=== PATIENT | male | born 1995 | race Caucasian/White ===

== ENCOUNTER 2018-09-10 18:32 | Inpatient (IN) | payer OTHER, SELFPAY ==
[~2018-09-10 18:32] MED LIST: ISOVUE-370 76%-LOCM 1 ML ONE
[2018-09-10] MEDS ORDERED: Propofol 1,000 MG/100 ML VIAL IV ONE (18:38)
[2018-09-10] MEDS ORDERED: CEFAZOLIN 1 GM VIAL ONE (18:41)
[2018-09-10] MEDS ORDERED: Adacel (T-DAP) 0.5 ML SYRINGE ONE (18:41)
[2018-09-10] MEDS ORDERED: Fentanyl 100 MCG/2 ML VIAL ONE (18:45)
[2018-09-10 18:50] LABS: Hemoglobin 14.3 g/dL (14.0-18.0); Mean Corpuscular HGB CONC 32.4 g/dL (32.0-36.0); Mean Corpuscular Hemoglobin 30.2 pg (27.0-31.0); Mean Corpuscular Volume 93.2 fL (78.0-98.0); Mean Platelet Volume 9.1 fL (7.4-10.4); Platelet Count 208 thou/uL (130-400); RBC Distribution Width 12.4 % (11.5-14.5); Red Blood Cell (RBC) Count 4.75 mill/uL (4.70-6.10); White Blood Cell (WBC) Count 29.8 thou/uL (4.8-10.8)
[2018-09-10 18:57] LABS: INR-International Normal Ratio 1.1; PTT 24.5 SEC (22.9-36.1); Prothrombin Time 14.4 SEC (12.0-14.7)
[2018-09-10 19:02] LABS: ALT (SGPT) 38 U/L (8-55); AST (SGOT) 45 U/L (5-34); Albumin 3.8 g/dL (3.5-5.0); Alkaline Phosphatase 75 U/L (40-150); Anion Gap 14 mmol/L (10-20); BUN (Urea Nitrogen) 16 mg/dL (8.9-20.6); Bilirubin, Total 0.4 mg/dL (0.2-1.2); Calc. Creatinine Clearance 0 mL/min (70-130); Calcium 8.9 mg/dL (7.8-10.44); Carbon Dioxide 25 mmol/L (22-29); Chloride 106 mmol/L (98-107); Estimated GFR-MDRD 46; Glucose 245 mg/dL (70-105); Potassium 3.7 mmol/L (3.5-5.1); Protein, Total 6.8 g/dL (6.0-8.3); Sodium 141 mmol/L (136-145)
[2018-09-10] MEDS ORDERED: Succinylcholine Chloride 20 MG/ML 10 ml SYRINGE FS ONE (19:08)
[2018-09-10 19:09] LABS: Band 12 % (5-11); Lymphocytes 37 % (21-51); MDiff Complete? YES; Monocytes 3 % (0-10); Neutrophil 48 % (42-75); Platelet Morphology Comment Appears Adequate
[2018-09-10 19:32] LABS: Actual Bicarbonate (HCO3a) 21.4 mEq/L (22-28); Analyzer IN Cardio ER; Base Excess (BEa) -5.3 mEq/L (-2.0 to +3.0); CO2 Tension 46.2 mmHg (35.0-45.0); Calcium, Ionized 1.14 mmol/L (1.12-1.30); Carboxyhemoglobin (COHb) 0.9 gm% (0.0-3.0); Hemoglobin (Hb) 13.4 g/dL (14.0-18.0); O2 Tension (PaO2) 135.2 mmHg (80.0-100.0); Potassium - ABG Lab 3.63 mmol/L (3.70-5.30); pH, Arterial 7.28 (7.35-7.45)
[2018-09-10 19:33] LABS: Puncture Site RRA
[2018-09-10 19:51] LABS: Bilirubin Negative (Negative); Blood, Urine Trace (Negative); Glucose, Urine (Dipstick) Negative (Negative); Leukocyte Negative (Negative); Nitrite Negative (Negative); Protein, Urine (Dipstick) Trace mg/dL (Neg-Trace); Urobilinogen 0.2 mg/dL (Less than 2)
[2018-09-10 19:56] LABS: Clarity Clear (Clear)
[2018-09-10] MEDS ORDERED: Midazolam HCl 2 mg/2 ml Vial ONE (19:58)
[2018-09-10 20:03] LABS: Bacteria/HPF None Seen HPF (None Seen); RBC/HPF 0-3 HPF (0-3); Squamous Epithelial 0-3 HPF (0-3); WBC/HPF 0-3 HPF (0-3)
[2018-09-10] MEDS ORDERED: Dextrose 50% Abboject 50 ML SYRINGE SLOW IVP PRN (20:10)
[2018-09-10] MEDS ORDERED: Promethazine HCl 25 MG/ML VIAL IM PRN (20:10)
[2018-09-10] MEDS ORDERED: hydrALAZINE 20 MG/ML VIAL SLOW IVP PRN (20:10)
[2018-09-10] MEDS ORDERED: Dextrose 5% in Water 1,000 ML IV PRN (20:10)
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
[2018-09-10 20:15] LABS: Amphetamine Not Detected (NotDetected); Barbiturates Screen Not Detected (NotDetected); Benzodiazepine Screen Not Detected (NotDetected); Cocaine Metabolite Screen Detected (NotDetected); Medtox Control Line Valid? VALID (VALID); Medtox Reader # READER 4; Methadone Not Detected (NotDetected); Methamphetamine Not Detected (NotDetected); Opiate Screen Not Detected (NotDetected); Oxycodone Screen Not Detected (NotDetected); Phencyclidine (PCP) Not Detected (NotDetected); THC/Cannabinoid Screen Not Detected (NotDetected); Tricyclic Screen Not Detected (NotDetected)
[2018-09-10] MEDS ORDERED: Ventilator Sedation Protocol 1 EACH FS SCH (20:15)
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
[2018-09-10] MEDS ORDERED: DISCONTINUE PREVIOUS NARCOTIC PAIN MEDICATIONS AND BENZODIAZEPINES FS SCH (20:57)
[2018-09-10] MEDS ORDERED: Propofol BOLUS 1,000 MG/100 ML VIAL IV PRN (20:57)
[2018-09-10] MEDS ORDERED: Lorazepam 2 MG/ML VIAL SLOW IVP PRN (20:57)
[2018-09-10] MEDS ORDERED: Fentanyl BOLUS 250 ML IVPB PRN (20:57)
[2018-09-10] MEDS ORDERED: Morphine 2 MG/ML SYRINGE SLOW IVP PRN (20:57)
[2018-09-10 21:13] LABS: Actual Bicarbonate (HCO3a) 21.3 mEq/L (22-28); Base Excess (BEa) -4.3 mEq/L (-2.0 to +3.0); CO2 Tension 40.8 mmHg (35.0-45.0); Calcium, Ionized 1.11 mmol/L (1.12-1.30); Carboxyhemoglobin (COHb) 0.3 gm% (0.0-3.0); Hemoglobin (Hb) 12.1 g/dL (14.0-18.0); O2 Tension (PaO2) 410.7 mmHg (80.0-100.0); pH, Arterial 7.34 (7.35-7.45)
[2018-09-10 21:18] LABS: Puncture Site RBRACHIAL
[2018-09-10] MEDS ORDERED: Lidocaine 1% w/Epinephrine 1:100K 20 ML VIAL ONE (21:21)
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
[2018-09-10] MEDS ORDERED: Calcium Chloride 1 GM/10 ML Abboject SYRINGE ONE (21:47)
[2018-09-10] MEDS: Sodium Chloride 0.9% 1,000 ML IV SCH (21:57)
[2018-09-10] MEDS ORDERED: Calcium Chloride 1 GM/10 ML Abboject SYRINGE IVP SCH (22:00)
[2018-09-10] MEDS: CEFAZOLIN 2 GM in Premix Bag 1 BAG IVPB SCH (22:22)
[2018-09-10] MEDS: Famotidine/PF 20 mg/2ml Vial SLOW IVP SCH (22:28)
[2018-09-10] MEDS: Propofol 1,000 MG/100 ML VIAL IV PRN (22:28)
[2018-09-10 23:32] LABS: Lactic Acid 3.9 mmol/L (0.5-2.2)
[2018-09-11] MEDS: Acetaminophen 1,000 MG in Premix Bag 1 BAG IVPB SCH ×4 (00:14→17:55)
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
[2018-09-11] MEDS: Propofol 1,000 MG/100 ML VIAL IV PRN ×4 (03:53→23:26)
[2018-09-11 04:54] LABS: Anion Gap 12 mmol/L (10-20); BUN (Urea Nitrogen) 15 mg/dL (8.9-20.6); Calc. Creatinine Clearance 0 mL/min (70-130); Calcium 8.4 mg/dL (7.8-10.44); Carbon Dioxide 21 mmol/L (22-29); Chloride 112 mmol/L (98-107); Estimated GFR-MDRD 68; Glucose 100 mg/dL (70-105); Magnesium 1.5 mg/dL (1.6-2.6); Phosphorus 2.6 mg/dL (2.3-4.7); Potassium 4.1 mmol/L (3.5-5.1); Sodium 141 mmol/L (136-145)
[2018-09-11 04:55] LABS: #Eosinphils 0.1 thou/uL (0.0-0.7); #Monocytes 1.3 thou/uL (0.11-0.59); #Neutrophils 12.5 thou/uL (1.40-6.50); %Basophils 0.3 % (0.0-1.0); %Eosinophils 0.8 % (0.0-10.0); %Lymphocytes 12.4 % (21.0-51.0); %Monocytes 7.9 % (0.0-10.0); %Neutrophils 78.6 % (42.0-75.0); Hemoglobin 12.3 g/dL (14.0-18.0); Mean Corpuscular HGB CONC 32.2 g/dL (32.0-36.0); Mean Corpuscular Hemoglobin 29.7 pg (27.0-31.0); Mean Corpuscular Volume 92.4 fL (78.0-98.0); Mean Platelet Volume 9.6 fL (7.4-10.4); Platelet Count 135 thou/uL (130-400); RBC Distribution Width 12.7 % (11.5-14.5); Red Blood Cell (RBC) Count 4.12 mill/uL (4.70-6.10); White Blood Cell (WBC) Count 15.9 thou/uL (4.8-10.8)
[2018-09-11] MEDS: CEFAZOLIN 2 GM in Premix Bag 1 BAG IVPB SCH ×3 (06:01→21:14)
[2018-09-11] MEDS: Sodium Chloride 0.9% 1,000 ML IV SCH ×3 (06:02→22:52)
[2018-09-11] MEDS ORDERED: Magnesium Sulfate 4 GM in Sodium Chloride 0.9% 250 ML 250 ML IVPB SCH (07:45)
--- NOTE | 2018-09-11 07:50 | CT ---
CT BRAIN WITHOUT CONTRAST: INDICATIONS: Follow-up intracranial hemorrhage. COMPARISON: Prior CT brain dated 09/10/2018 at 7:04 p.m. FINDINGS: The small contusions involving the anterior aspects of both frontal lobes are likely stable. The sma ll extraaxial hemorrhage overlying the lateral aspect of the anterior right temporal lobe is relative ly stable, measuring 4 to 5 mm in thickness. There is a small contusion that has developed along the anterior convexity of the right frontal lobe, measuring 8 mm on image 24 of series 2. A small amoun t of layering hemorrhage is seen within the sulcus of the left frontal convexity, on image 25 of seri es 2. There is mild thickening of the anterior falx, measuring approximately 1.4 mm, suspicious for a small subdural hematoma, slightly more accentuated than on the prior exam. No hydrocephalus or mid line shift is evident. The basilar cisterns are patent. There are extensive facial fractures involv ing the frontal skull, the anterior skull base, and the right temporal bone again demonstrated. Ther e is diffuse opacity seen within the paranasal sinuses, likely related to hemorrhage. IMPRESSION: 1. Stable extraaxial hemorrhage overlying the lateral aspect of the anterior right temporal lobe. 2. Stable contusions involving the anterior temporal lobes. 3. Interval development of a small contusion involving the anterior-superior right frontal convexity . 4. Small amount of layered hemorrhage seen within the sulcus of the anterior left frontal lobe. 5. Mild thickening of the anterior falx, suspicious for a small amount of subdural hemorrhage seen a long the falx cerebri. 6. Continued CT followup is recommended. 7. Extensive facial fractures and skull base fractures. POS: [facility]
[2018-09-11 08:30] LABS: Actual Bicarbonate (HCO3a) 21.4 mEq/L (22-28); Base Excess (BEa) -2.2 mEq/L (-2.0 to +3.0); CO2 Tension 32.9 mmHg (35.0-45.0); Calcium, Ionized 1.15 mmol/L (1.12-1.30); Carboxyhemoglobin (COHb) 0.7 gm% (0.0-3.0); Hemoglobin (Hb) 11.8 g/dL (14.0-18.0); O2 Tension (PaO2) 86.5 mmHg (80.0-100.0); Potassium - ABG Lab 3.68 mmol/L (3.70-5.30); pH, Arterial 7.43 (7.35-7.45)
[2018-09-11] MEDS ORDERED: Dexamethasone 4 mg/ml Vial SLOW IVP SCH (08:30)
[2018-09-11 08:34] LABS: ALV-art Gradient 193.225 (0-20)
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
[2018-09-11] MEDS: Famotidine/PF 20 mg/2ml Vial SLOW IVP SCH ×2 (09:18→21:14)
[2018-09-11] MEDS: Dexamethasone 4 mg/ml Vial SLOW IVP SCH ×2 (12:18→17:56)
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
[2018-09-11] MEDS: fentaNYL Citrate/PF 2,000 MCG in Sodium Chloride 0.9% 60 ML IV SCH (14:45)
[2018-09-11] MEDS: Silver Sulfadiazine 1% Cream 50 GM JAR TOP SCH ×2 (16:52→21:16)
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
[2018-09-12] MEDS: Dexamethasone 4 mg/ml Vial SLOW IVP SCH ×4 (00:10→17:27)
[2018-09-12] MEDS: Propofol 1,000 MG/100 ML VIAL IV PRN ×3 (05:20→17:27)
[2018-09-12 05:29] LABS: Base Excess (BEa) 3.1 mEq/L (-2.0 to +3.0); CO2 Tension 28.9 mmHg (35.0-45.0); O2 Tension (PaO2) 65.5 mmHg (80.0-100.0); pH, Arterial 7.46 (7.35-7.45)
[2018-09-12 05:30] LABS: Carboxyhemoglobin (COHb) 0.5 gm% (0.0-3.0); Hemoglobin (Hb) 10.1 g/dL (14.0-18.0); Potassium - ABG Lab 3.74 mmol/L (3.70-5.30)
[2018-09-12 05:31] LABS: ALV-art Gradient 112.275 (0-20); Puncture Site RRA
[2018-09-12] MEDS: CEFAZOLIN 2 GM in Premix Bag 1 BAG IVPB SCH ×3 (05:52→21:32)
[2018-09-12] MEDS: Sodium Chloride 0.9% 1,000 ML IV SCH ×2 (06:02→14:46)
[2018-09-12 06:13] LABS: Anion Gap 11 mmol/L (10-20); BUN (Urea Nitrogen) 13 mg/dL (8.9-20.6); Calc. Creatinine Clearance 125 mL/min (70-130); Calcium 8.4 mg/dL (7.8-10.44); Carbon Dioxide 20 mmol/L (22-29); Chloride 118 mmol/L (98-107); Estimated GFR-MDRD 76; Glucose 142 mg/dL (70-105); Magnesium 1.8 mg/dL (1.6-2.6); Phosphorus 1.9 mg/dL (2.3-4.7); Potassium 3.9 mmol/L (3.5-5.1); Sodium 145 mmol/L (136-145)
[2018-09-12] MEDS ORDERED: Sodium Phosphate 30 MMOL in Sodium Chloride 0.9% 250 ML 250 ML IVPB SCH (06:30)
[2018-09-12] MEDS ORDERED: Lidocaine 1% w/Epinephrine 1:100K 20 ML VIAL ONE (07:47)
[2018-09-12] MEDS ORDERED: Fentanyl 100 MCG/2 ML VIAL SLOW IVP SCH (08:00)
[2018-09-12] MEDS ORDERED: Vecuronium 10 MG VIAL IVP SCH (08:00)
[2018-09-12] MEDS ORDERED: Midazolam HCl 2 mg/2 ml Vial SLOW IVP SCH (08:00)
[2018-09-12] MEDS ORDERED: Midazolam HCl 2 mg/2 ml Vial ONE ×2 (08:06→13:09)
[2018-09-12] MEDS ORDERED: Fentanyl 100 MCG/2 ML VIAL ONE ×3 (08:07→13:45)
[2018-09-12] MEDS ORDERED: Vecuronium 10 MG VIAL ONE (08:07)
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
--- NOTE | 2018-09-12 09:37 | RAD ---
2 view chest: CLINICAL HISTORY: Cough/Fever COMPARISON: 09/11/2018 FINDINGS: Newly developed opacity of the medial right upper lung zone. No evidence of effusion, or significant postprocedural pneumothorax. Cardiac silhouette is stable in size. Interval exchange of prior endotracheal tube for tracheostomy, when comparing to yesterday's exam. Ti p of tracheostomy resides just inferior to thoracic inlet level. Left subclavian venous catheter has been placed with tip overlying SVC. IMPRESSION: Interval exchange of prior endotracheal tube for tracheostomy, as well as placement of left subclavia n venous catheter. There is a newly developed moderate-sized opacity at the medial right upper hemithorax. This could re late to a component of right upper lobe collapse. Alternatively, a paramediastinal hematoma cannot be entirely excluded given proximity to newly placed vascular catheter. A superimposed, discrete pneu mothorax is not visualized. Recommend close continued imaging follow-up. Findings telephoned patient's physician Manjeet Vasquez D.O., at time of dictation, 0930 hours, 019.
[2018-09-12] MEDS: Senokot S 8.6-50 MG TAB PO SCH ×2 (09:53→21:37)
[2018-09-12] MEDS: Polyethylene Glycol 3350 17 GM Packet PO SCH (09:53)
[2018-09-12] MEDS: Famotidine/PF 20 mg/2ml Vial SLOW IVP SCH ×2 (09:56→21:32)
[2018-09-12] MEDS ORDERED: Iopamidol 370 76% 50 ML VIAL FS ONE (10:15)
[2018-09-12] MEDS ORDERED: Lidocaine 1% (PF) 30 ML VIAL ONE (12:55)
--- NOTE | 2018-09-12 14:35 | PRG ---
DATE OF SERVICE: 09/12/2018 The patient's neurologic exam has been stable. When off sedation, his eye opens and moves all fours purposefully. He had an uncomplicated trach and PEG at the bedside today. I will plan on a CT head tomorrow, but if he remains clinically and radiographically stable tomorrow, I think it would be reasonable to proceed with any facial or other surgery necessary. Updated his family. Job ID: [id number]
[2018-09-12] MEDS: Silver Sulfadiazine 1% Cream 50 GM JAR TOP SCH ×2 (14:44→21:40)
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
[2018-09-13] MEDS: Dexamethasone 4 mg/ml Vial SLOW IVP SCH ×5 (00:20→23:42)
[2018-09-13] MEDS: Sodium Chloride 0.9% 1,000 ML IV SCH ×3 (00:20→08:20)
[2018-09-13] MEDS: Propofol 1,000 MG/100 ML VIAL IV PRN ×4 (00:21→23:42)
[2018-09-13 04:13] LABS: #Lymphocytes 0.8 thou/uL (1.20-3.40); #Monocytes 0.6 thou/uL (0.11-0.59); #Neutrophils 9.5 thou/uL (1.40-6.50); %Eosinophils 0.1 % (0.0-10.0); %Lymphocytes 7.6 % (21.0-51.0); %Monocytes 5.5 % (0.0-10.0); %Neutrophils 86.9 % (42.0-75.0); Hemoglobin 9.5 g/dL (14.0-18.0); Mean Corpuscular Hemoglobin 29.9 pg (27.0-31.0); Mean Corpuscular Volume 93.6 fL (78.0-98.0); Mean Platelet Volume 9.6 fL (7.4-10.4); Platelet Count 127 thou/uL (130-400); RBC Distribution Width 12.8 % (11.5-14.5); Red Blood Cell (RBC) Count 3.16 mill/uL (4.70-6.10); White Blood Cell (WBC) Count 10.9 thou/uL (4.8-10.8)
[2018-09-13 05:00] LABS: Anion Gap 13 mmol/L (10-20); BUN (Urea Nitrogen) 11 mg/dL (8.9-20.6); Calc. Creatinine Clearance 142 mL/min (70-130); Calcium 9.4 mg/dL (7.8-10.44); Carbon Dioxide 25 mmol/L (22-29); Chloride 116 mmol/L (98-107); Estimated GFR-MDRD 88; Glucose 153 mg/dL (70-105); Magnesium 1.9 mg/dL (1.6-2.6); Phosphorus 4.4 mg/dL (2.3-4.7); Potassium 4.1 mmol/L (3.5-5.1); Sodium 150 mmol/L (136-145)
[2018-09-13] MEDS: CEFAZOLIN 2 GM in Premix Bag 1 BAG IVPB SCH ×3 (05:57→21:24)
--- NOTE | 2018-09-13 08:08 | CT ---
CT OF HEAD NONCONTRAST: INDICATION: Intracranial hemorrhage, followup. COMPARISON: Reference is made to exam of 09/11/2018. FINDINGS: Redemonstration of a small nidus of hemorrhage at the right frontal lobe with mild surrounding vasoge nirali edema. There is mild subarachnoid hemorrhage and notably within the left frontal and right parie teresa sulci. Small volume subdural hematoma is seen along the inner hemispheric falx. Extraaxial hemo rrhage overlying the lateral right temporal lobe demonstrates a thickness of 6 mm and there is redemo nstration of multifocal hemorrhagic foci of each anterior temporal lobe as well as within the adjacen t, inferior right frontal lobe. Partially imaged extensive facial fracture deformity and opacification of the paranasal sinuses is ag ain seen. IMPRESSION: Redemonstration of multifocal intracranial, parenchymal, and extraaxial hemorrhage which is grossly s table in volume. Recommend continued imaging followup. POS: NOEL
[2018-09-13] MEDS: Polyethylene Glycol 3350 17 GM Packet PO SCH (08:57)
[2018-09-13] MEDS: Famotidine/PF 20 mg/2ml Vial SLOW IVP SCH ×2 (08:57→21:24)
[2018-09-13] MEDS: Senokot S 8.6-50 MG TAB PO SCH ×2 (08:57→21:24)
[2018-09-13] MEDS: Silver Sulfadiazine 1% Cream 50 GM JAR TOP SCH ×2 (08:58→21:25)
--- NOTE | 2018-09-13 09:07 | PRG ---
DATE OF SERVICE: 09/13/2018 The patient remained stable in the ICU. He went for trach and PEG yesterday without complications. On exam this morning, when sedation is turned down, the patient opens his eyes easily to stimulation. He will squeeze our hands over bilateral upper extremities. He is moving all fours and will thrash his legs about with stimulation. This appears stable when compared to prior exams. No obvious CSF noted from the nose or mouth. His repeat head CT was stable this morning. Considering his stable exam and stable head CT, Neurosurgery feels it is appropriate to move forward with additional surgery planned by [facility]FS at any point in time. I have notified the Trauma Service. Job ID: [id number]
[2018-09-13] MEDS: D5 1/2 NS w/20 mEq KCL 1,000 ML IV SCH ×2 (09:25→17:52)
--- NOTE | 2018-09-13 09:57 | RAD ---
2 view chest: CLINICAL HISTORY: Cough/Fever COMPARISON: Previous day FINDINGS: Interval decrease in confluence of prior opacity at medial right upper chest, with mild residual hazy density of this region. Cardiac silhouette is accentuated. Tracheostomy and left subclavian venous catheter remain. Mild left basilar linear densities. IMPRESSION: Decreasing opacity at medial right upper chest. Left basilar atelectasis.
[2018-09-13] MEDS: fentaNYL Citrate/PF 2,000 MCG in Sodium Chloride 0.9% 60 ML IV SCH (11:11)
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
[2018-09-13] MEDS: Bacitracin Zinc Ointment 30 gm TUBE TOP PRN (21:25)
[2018-09-14] MEDS: D5 1/2 NS w/20 mEq KCL 1,000 ML IV SCH ×4 (00:50→19:09)
[2018-09-14] MEDS: CEFAZOLIN 2 GM in Premix Bag 1 BAG IVPB SCH ×3 (05:28→20:57)
[2018-09-14] MEDS: Dexamethasone 4 mg/ml Vial SLOW IVP SCH ×4 (05:28→19:08)
[2018-09-14 05:32] LABS: #Basophils 0.1 thou/uL (0.0-0.2); #Monocytes 0.7 thou/uL (0.11-0.59); #Neutrophils 7.9 thou/uL (1.40-6.50); %Basophils 0.8 % (0.0-1.0); %Eosinophils 0.2 % (0.0-10.0); %Lymphocytes 10.4 % (21.0-51.0); %Neutrophils 81.6 % (42.0-75.0); Hemoglobin 8.2 g/dL (14.0-18.0); Mean Corpuscular HGB CONC 30.7 g/dL (32.0-36.0); Mean Corpuscular Volume 94.5 fL (78.0-98.0); Mean Platelet Volume 9.3 fL (7.4-10.4); Platelet Count 128 thou/uL (130-400); Red Blood Cell (RBC) Count 2.81 mill/uL (4.70-6.10); White Blood Cell (WBC) Count 9.7 thou/uL (4.8-10.8)
[2018-09-14 05:57] LABS: Anion Gap 10 mmol/L (10-20); BUN (Urea Nitrogen) 12 mg/dL (8.9-20.6); Calc. Creatinine Clearance 178 mL/min (70-130); Calcium 8.6 mg/dL (7.8-10.44); Carbon Dioxide 30 mmol/L (22-29); Chloride 112 mmol/L (98-107); Estimated GFR-MDRD Greater than 90; Glucose 145 mg/dL (70-105); Magnesium 2.2 mg/dL (1.6-2.6); Phosphorus 3.5 mg/dL (2.3-4.7); Potassium 3.8 mmol/L (3.5-5.1); Sodium 148 mmol/L (136-145)
[2018-09-14] MEDS: Propofol 1,000 MG/100 ML VIAL IV PRN (08:34)
[2018-09-14] MEDS: Silver Sulfadiazine 1% Cream 50 GM JAR TOP SCH ×2 (08:35→21:00)
[2018-09-14] MEDS: Bacitracin Zinc Ointment 30 gm TUBE TOP PRN (08:35)
[2018-09-14] MEDS: Famotidine/PF 20 mg/2ml Vial SLOW IVP SCH ×2 (08:35→20:58)
[2018-09-14] MEDS: Polyethylene Glycol 3350 17 GM Packet PO SCH (08:36)
[2018-09-14] MEDS: Senokot S 8.6-50 MG TAB PO SCH ×2 (08:36→20:59)
--- NOTE | 2018-09-14 09:20 | PRG ---
DATE OF SERVICE: 09/14/2018 SUBJECTIVE: No overnight events. The patient remains stable in the ICU. Nursing has recently noticed some intermittent drainage from the nose and the mouth, particularly when the patient coughs. OBJECTIVE: On exam this morning, with the patient turned down, the patient opens his eyes easily to voice. He is not tracking, but his pupils are equal and sluggish. He moves bilateral upper extremities and squeezes both my hands on command. He does not move the lower extremities to command, but with stimulation will thrash about. He does have some serosanguineous fluid intermittently from the nose and mouth, particularly with coughing. IMPRESSION AND PLAN: New drainage from nose and mouth. This is concerning for CSF and the patient is high risk for CSF, otorrhea following this traumatic event. We still feel that he can move forward with surgery with OMFS and there are plans for right hand surgery later today with Dr. Schwartz. I feel that this continues to be appropriate. I will discuss with Dr. Conner his new drainage from the nose and mouth. Job ID: [id number]
[2018-09-14] MEDS: fentaNYL Citrate/PF 2,000 MCG in Sodium Chloride 0.9% 60 ML IV SCH (11:11)
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
[2018-09-14] MEDS ORDERED: Rocuronium Bromide 10 MG/ML (10ML VIAL) ONE (14:30)
[2018-09-14] MEDS ORDERED: Dexamethasone 20 MG/5 ML VIAL ONE (14:30)
[2018-09-14] MEDS ORDERED: Ondansetron PF 4 MG/2 ML Vial ONE (14:30)
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
[2018-09-14] MEDS ORDERED: Bacitracin Zinc Ointment 30 gm TUBE ONE ×2 (16:48→17:48)
[2018-09-14] MEDS ORDERED: Sodium Chloride 0.9% 30 ML ONE (16:48)
[2018-09-14] MEDS ORDERED: Bupivacaine PF 0.5% 30 ML VIAL ONE (16:48)
[2018-09-14] MEDS ORDERED: Midazolam HCl 2 mg/2 ml Vial ONE (18:18)
[2018-09-15] MEDS: D5 1/2 NS w/20 mEq KCL 1,000 ML IV SCH ×3 (03:33→19:54)
[2018-09-15 03:54] LABS: #Basophils 0.1 thou/uL (0.0-0.2); #Lymphocytes 1.5 thou/uL (1.20-3.40); #Monocytes 0.8 thou/uL (0.11-0.59); #Neutrophils 6.1 thou/uL (1.40-6.50); %Basophils 0.6 % (0.0-1.0); %Eosinophils 0.2 % (0.0-10.0); %Monocytes 9.2 % (0.0-10.0); Hemoglobin 8.6 g/dL (14.0-18.0); Mean Corpuscular HGB CONC 31.5 g/dL (32.0-36.0); Mean Corpuscular Hemoglobin 29.7 pg (27.0-31.0); Mean Corpuscular Volume 94.5 fL (78.0-98.0); Mean Platelet Volume 9.2 fL (7.4-10.4); Platelet Count 130 thou/uL (130-400); White Blood Cell (WBC) Count 8.5 thou/uL (4.8-10.8)
[2018-09-15 04:07] LABS: Anion Gap 12 mmol/L (10-20); BUN (Urea Nitrogen) 15 mg/dL (8.9-20.6); Calc. Creatinine Clearance 178 mL/min (70-130); Calcium 8.9 mg/dL (7.8-10.44); Carbon Dioxide 29 mmol/L (22-29); Chloride 111 mmol/L (98-107); Estimated GFR-MDRD Greater than 90; Glucose 135 mg/dL (70-105); Magnesium 2.5 mg/dL (1.6-2.6); Phosphorus 3.9 mg/dL (2.3-4.7); Potassium 4.1 mmol/L (3.5-5.1); Sodium 148 mmol/L (136-145)
[2018-09-15] MEDS: Dexamethasone 4 mg/ml Vial SLOW IVP SCH ×4 (05:38→22:27)
[2018-09-15] MEDS: CEFAZOLIN 2 GM in Premix Bag 1 BAG IVPB SCH ×3 (05:38→22:11)
[2018-09-15] MEDS: Famotidine/PF 20 mg/2ml Vial SLOW IVP SCH ×2 (09:40→21:00)
[2018-09-15] MEDS: Senokot S 8.6-50 MG TAB PO SCH ×2 (09:40→21:01)
[2018-09-15] MEDS: Polyethylene Glycol 3350 17 GM Packet PO SCH (09:40)
[2018-09-15] MEDS: Silver Sulfadiazine 1% Cream 50 GM JAR TOP SCH ×2 (09:42→21:01)
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
--- NOTE | 2018-09-15 13:00 | PRG ---
DATE OF SERVICE: 09/15/2018 SUBJECTIVE: The patient was seen and examined, agree with Katerine Bain's evaluation on 09/15/2018. The patient's eyes are open spontaneously. He does not attend to the examiner on the left side of the bed, but on the right side of the bed, the patient will turn his head and his eyes will track the examiner. 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 He also has left hemiparesis. Currently, the patient is having no rhinorrhea. He had had some meaningful bloody rhinorrhea over the last 48 hours, but this seems to have improved substantially. It is impossible to know with certainty whether CSF could have been an element to this rhinorrhea, but he has many reasons to have rhinorrhea at this time and I do not recommend testing or further intervention in this regard. He is scheduled for facial surgery on Monday, which I think is reasonable. We will continue to follow expectantly. He will be at risk of CSF rhinorrhea for some time. From the perspective of his head injury, he is making meaningful progress and once his other injuries have stabilized, we can begin discharge planning. Discussed with his and mother. Job ID: [id number]
[2018-09-16] MEDS ORDERED: Fentanyl 100 MCG/2 ML VIAL SLOW IVP PRN (03:44)
[2018-09-16] MEDS: Fentanyl 100 MCG/2 ML VIAL SLOW IVP PRN ×2 (04:02→12:17)
[2018-09-16] MEDS: D5 1/2 NS w/20 mEq KCL 1,000 ML IV SCH ×3 (04:04→20:48)
[2018-09-16] MEDS: CEFAZOLIN 2 GM in Premix Bag 1 BAG IVPB SCH ×3 (05:48→22:24)
[2018-09-16] MEDS: Dexamethasone 4 mg/ml Vial SLOW IVP SCH ×2 (05:48→11:06)
[2018-09-16] MEDS: Polyethylene Glycol 3350 17 GM Packet PO SCH (09:24)
[2018-09-16] MEDS: Famotidine/PF 20 mg/2ml Vial SLOW IVP SCH ×2 (09:24→20:49)
[2018-09-16] MEDS: Senokot S 8.6-50 MG TAB PO SCH ×2 (09:24→20:49)
[2018-09-16] MEDS: Silver Sulfadiazine 1% Cream 50 GM JAR TOP SCH ×2 (09:25→20:49)
[2018-09-16] MEDS ORDERED: Morphine 4 MG/ML VIAL SLOW IVP PRN (13:06)
[2018-09-16] MEDS ORDERED: Morphine 2 MG/ML SYRINGE SLOW IVP PRN (13:10)
[2018-09-16] MEDS: Acetaminophen 650 MG/20.3 ML UDCUP PO SCH ×3 (13:25→22:24)
[2018-09-16] MEDS: traMADol HCl 50 MG TAB PO SCH ×3 (13:25→23:00)
[2018-09-16] MEDS ORDERED: Acetaminophen 500 MG TAB PO SCH (14:00)
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
[2018-09-17] MEDS: Ondansetron PF 4 MG/2 ML Vial IVP PRN (00:15)
[2018-09-17] MEDS: Acetaminophen 650 MG/20.3 ML UDCUP PO SCH ×6 (02:09→23:30)
[2018-09-17] MEDS: traMADol HCl 50 MG TAB PO SCH ×6 (02:10→23:11)
[2018-09-17 04:33] LABS: Anion Gap 10 mmol/L (10-20); BUN (Urea Nitrogen) 21 mg/dL (8.9-20.6); Calc. Creatinine Clearance 195 mL/min (70-130); Calcium 8.2 mg/dL (7.8-10.44); Carbon Dioxide 29 mmol/L (22-29); Chloride 104 mmol/L (98-107); Estimated GFR-MDRD Greater than 90; Glucose 103 mg/dL (70-105); Magnesium 2.1 mg/dL (1.6-2.6); Phosphorus 3.8 mg/dL (2.3-4.7); Potassium 3.7 mmol/L (3.5-5.1); Sodium 139 mmol/L (136-145)
[2018-09-17 04:35] LABS: Band 13 % (5-11); Hemoglobin 10.9 g/dL (14.0-18.0); Hypochromia SLIGHT = 6-15 cells (100X) (0-5/hpf); Lymphocytes 18 % (21-51); MDiff Complete? YES; Mean Corpuscular HGB CONC 32.3 g/dL (32.0-36.0); Mean Corpuscular Hemoglobin 30.2 pg (27.0-31.0); Mean Corpuscular Volume 93.8 fL (78.0-98.0); Mean Platelet Volume 8.6 fL (7.4-10.4); Metamyelocyte 4 % (0-0); Monocytes 9 % (0-10); Neutrophil 56 % (42-75); Nucleated RBC 1 % (0); Platelet Count 171 thou/uL (130-400); Platelet Morphology Comment Appears Adequate; RBC Distribution Width 13.6 % (11.5-14.5); White Blood Cell (WBC) Count 20.8 thou/uL (4.8-10.8)
[2018-09-17] MEDS: CEFAZOLIN 2 GM in Premix Bag 1 BAG IVPB SCH ×3 (05:23→23:11)
[2018-09-17] MEDS: D5 1/2 NS w/20 mEq KCL 1,000 ML IV SCH ×3 (05:23→23:13)
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
[2018-09-17] MEDS: Senokot S 8.6-50 MG TAB PO SCH ×2 (09:35→23:11)
[2018-09-17] MEDS: Famotidine/PF 20 mg/2ml Vial SLOW IVP SCH ×2 (09:35→23:10)
[2018-09-17] MEDS: Polyethylene Glycol 3350 17 GM Packet PO SCH (09:35)
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
[2018-09-17] MEDS: Silver Sulfadiazine 1% Cream 50 GM JAR TOP SCH ×2 (10:52→23:14)
[2018-09-17] MEDS: Bisacodyl 10 MG SUPP PR SCH (11:00)
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
[2018-09-17] MEDS ORDERED: PROPOFOL 200 MG/20 ML VIAL ONE (16:08)
[2018-09-17] MEDS ORDERED: Lidocaine 1% PF 5 ML VIAL ONE (16:08)
[2018-09-17] MEDS ORDERED: Rocuronium Bromide 10 MG/ML (10ML VIAL) ONE (16:08)
[2018-09-17] MEDS ORDERED: Hydrocortisone 1% Cream 30 GM TUBE ONE (16:46)
[2018-09-17] MEDS ORDERED: Lidocaine 1% w/Epinephrine 1:100K 20 ML VIAL ONE (16:46)
[2018-09-17] MEDS ORDERED: Chlorhexidine Gluconate 15 ML UDCUP SSP ONE (16:47)
[2018-09-17] MEDS ORDERED: Sodium Chloride 0.9% 10 ML ONE (16:47)
[2018-09-17] MEDS ORDERED: Bacitracin Zinc Ointment 30 gm TUBE ONE (16:47)
[2018-09-17] MEDS ORDERED: Midazolam HCl 2 mg/2 ml Vial ONE ×2 (17:57→21:00)
[2018-09-17] MEDS ORDERED: Fentanyl 100 MCG/2 ML VIAL ONE ×2 (17:57→21:00)
[2018-09-17] MEDS ORDERED: Ophthalmic Irrigation Solution 30 ML ONE (21:03)
[2018-09-17 21:51] LABS: Actual Bicarbonate (HCO3a) 25.9 mEq/L (22-28); Base Excess (BEa) 1.3 mEq/L (-2.0 to +3.0); CO2 Tension 41.2 mmHg (35.0-45.0); Calcium, Ionized 1.14 mmol/L (1.12-1.30); Hemoglobin (Hb) 11.4 g/dL (14.0-18.0); O2 Tension (PaO2) 122.9 mmHg (80.0-100.0); Potassium - ABG Lab 4.58 mmol/L (3.70-5.30); Puncture Site L RADIAL; pH, Arterial 7.42 (7.35-7.45)
--- NOTE | 2018-09-17 22:19 | CT ---
EXAM: CT Facial Bones WO Con PROVIDED CLINICAL HISTORY: Postop COMPARISON: 09/10/2018 FINDINGS: Interval plate and screw fixation of anterior wall maxillary sinus fractures as well as axially orien josi fractures of the maxilla at the base of the nasal processes. Extensive additional facial fractures as previously detailed are redemonstrated. Complete opacification of the paranasal sinuses by blood products. Fat density is noted within the right maxillary sinus. IMPRESSION: Interval postoperative change.
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
[2018-09-18] MEDS: Acetaminophen 650 MG/20.3 ML UDCUP PO SCH ×6 (03:09→21:39)
[2018-09-18] MEDS: traMADol HCl 50 MG TAB PO SCH ×3 (04:27→17:29)
[2018-09-18] MEDS: CEFAZOLIN 2 GM in Premix Bag 1 BAG IVPB SCH ×3 (05:11→21:10)
[2018-09-18 05:16] LABS: Band 10 % (5-11); Eosinophils 2 % (0-10); Hemoglobin 10.4 g/dL (14.0-18.0); Hypochromia SLIGHT = 6-15 cells (100X) (0-5/hpf); Lymphocytes 7 % (21-51); MDiff Complete? YES; Mean Corpuscular HGB CONC 31.6 g/dL (32.0-36.0); Mean Corpuscular Hemoglobin 29.2 pg (27.0-31.0); Mean Corpuscular Volume 92.6 fL (78.0-98.0); Mean Platelet Volume 8.4 fL (7.4-10.4); Monocytes 6 % (0-10); Neutrophil 75 % (42-75); Platelet Count 213 thou/uL (130-400); Platelet Morphology Comment Appears Adequate; RBC Distribution Width 13.6 % (11.5-14.5); Red Blood Cell (RBC) Count 3.56 mill/uL (4.70-6.10); White Blood Cell (WBC) Count 19.1 thou/uL (4.8-10.8)
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
[2018-09-18] MEDS: Ondansetron PF 4 MG/2 ML Vial IVP PRN (07:56)
[2018-09-18] MEDS: Senokot S 8.6-50 MG TAB PO SCH ×2 (08:52→20:52)
[2018-09-18] MEDS: Famotidine/PF 20 mg/2ml Vial SLOW IVP SCH ×2 (08:52→20:51)
[2018-09-18] MEDS: Bisacodyl 10 MG SUPP PR SCH (08:52)
[2018-09-18] MEDS: Chlorhexidine Gluconate 15 ML UDCUP SSP SCH ×2 (08:52→21:09)
[2018-09-18] MEDS: Polyethylene Glycol 3350 17 GM Packet PO SCH (08:52)
[2018-09-18] MEDS: Silver Sulfadiazine 1% Cream 50 GM JAR TOP SCH ×2 (08:53→20:52)
[2018-09-18] MEDS: D5 1/2 NS w/20 mEq KCL 1,000 ML IV SCH (08:55)
[2018-09-18 09:28] LABS: Anion Gap 11 mmol/L (10-20); BUN (Urea Nitrogen) 17 mg/dL (8.9-20.6); Calc. Creatinine Clearance 192 mL/min (70-130); Calcium 7.8 mg/dL (7.8-10.44); Carbon Dioxide 24 mmol/L (22-29); Chloride 95 mmol/L (98-107); Estimated GFR-MDRD Greater than 90; Glucose 312 mg/dL (70-105); Magnesium 1.5 mg/dL (1.6-2.6); Phosphorus 3.7 mg/dL (2.3-4.7); Potassium 5.3 mmol/L (3.5-5.1); Sodium 125 mmol/L (136-145)
[2018-09-18] MEDS: Scopolamine 1.5 mg/72 hour Patch TD SCH (11:18)
[2018-09-18 12:09] LABS: Anion Gap 13 mmol/L (10-20); BUN (Urea Nitrogen) 18 mg/dL (8.9-20.6); Calc. Creatinine Clearance 202 mL/min (70-130); Calcium 8.3 mg/dL (7.8-10.44); Carbon Dioxide 25 mmol/L (22-29); Chloride 94 mmol/L (98-107); Estimated GFR-MDRD Greater than 90; Glucose 85 mg/dL (70-105); Potassium 4.5 mmol/L (3.5-5.1); Sodium 127 mmol/L (136-145)
--- NOTE | 2018-09-18 12:10 | CT ---
CT Brain WO Con HISTORY: Postop hyperemesis low-sodium. COMPARISON: 09/13/2018 study. FINDINGS: The ventricular and cisternal system is within normal limits. The right-sided subdural mulu jax in the temporal region is similar to the prior examination. The areas of intraparenchymal contusion in the anterior temporal lobe regions bilaterally are improved. Also the small hemorrhagic focus in the right frontal anterior convexity region is largely resolved. No new areas of hemorrhage. Facial trauma and opacification of the sinuses is noted with postoperative change. IMPRESSION: Improvement to the areas of subarachnoid, intra-axial and extra-axial hemorrhage as linda red to the previous exam no new process noted.
[2018-09-18] MEDS ORDERED: Magnesium 2 GM/50 ML 4 GM in Premix Bag 1 BAG IVPB SCH (12:30)
[2018-09-18] MEDS: Morphine 2 MG/ML SYRINGE SLOW IVP PRN (12:33)
[2018-09-18 12:35] LABS: Bacteria/HPF None Seen HPF (None Seen); Bilirubin Negative (Negative); Blood, Urine 2+ (Negative); Clarity Clear (Clear); Glucose, Urine (Dipstick) Normal (Negative); Leukocyte Negative Leu/uL (Negative); Nitrite Negative (Negative); Protein, Urine (Dipstick) Negative (Neg-Trace); RBC/HPF Greater than 50 HPF (0-3); Squamous Epithelial None Seen HPF (0-3); Urobilinogen Normal mg/dL (Less than 2); WBC/HPF 0-3 HPF (0-3)
[2018-09-18 12:37] LABS: Urine Culture Reflex No No
[2018-09-18] MEDS: Sodium Chloride 0.9% 1,000 ML IV SCH ×2 (12:49→21:38)
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
[2018-09-18] MEDS: Metoclopramide 10 MG/10 ML UDCUP PO SCH ×3 (13:57→20:51)
[2018-09-18] MEDS ORDERED: Dexamethasone 20 MG/5 ML VIAL SLOW IVP SCH (14:00)
[2018-09-18] MEDS: Dexamethasone 4 mg/ml Vial SLOW IVP SCH ×2 (14:04→21:09)
[2018-09-18] MEDS: Sodium Chloride 1 GM TAB PO SCH ×2 (16:43→21:10)
--- NOTE | 2018-09-18 20:36 | CON ---
DATE OF CONSULTATION: 09/18/2018 SUBJECTIVE: Mr. Godwin has his eyes open and occasionally tracks the examiner. He is following commands and the left side seems to be moving slightly more briskly than it had been previously. He is having no rhinorrhea. IMPRESSION AND PLAN: From a neurosurgical perspective, I will arrange 4-week followup with a head CT. He can safely be mobilized toward rehab from a neurosurgical perspective. Job ID: [id number]
[2018-09-19] MEDS: traMADol HCl 50 MG TAB PO SCH ×5 (00:29→23:22)
[2018-09-19] MEDS: Ondansetron PF 4 MG/2 ML Vial IVP PRN ×2 (00:30→20:00)
[2018-09-19] MEDS: Acetaminophen 650 MG/20.3 ML UDCUP PO SCH ×6 (01:46→21:00)
[2018-09-19] MEDS: Sodium Chloride 1 GM TAB PO SCH (03:00)
[2018-09-19] MEDS: Dexamethasone 4 mg/ml Vial SLOW IVP SCH (05:01)
[2018-09-19] MEDS: CEFAZOLIN 2 GM in Premix Bag 1 BAG IVPB SCH ×3 (05:01→21:00)
[2018-09-19 05:02] LABS: Band 24 % (5-11); Lymphocytes 5 % (21-51); MDiff Complete? YES; Mean Corpuscular HGB CONC 33.1 g/dL (32.0-36.0); Mean Corpuscular Volume 90.7 fL (78.0-98.0); Mean Platelet Volume 8.1 fL (7.4-10.4); Neutrophil 71 % (42-75); Platelet Count 217 thou/uL (130-400); Platelet Morphology Comment Appears Adequate; RBC Distribution Width 13.2 % (11.5-14.5); Red Blood Cell (RBC) Count 3.34 mill/uL (4.70-6.10); White Blood Cell (WBC) Count 19.3 thou/uL (4.8-10.8)
[2018-09-19 05:04] LABS: Anion Gap 11 mmol/L (10-20); BUN (Urea Nitrogen) 17 mg/dL (8.9-20.6); Calc. Creatinine Clearance 214 mL/min (70-130); Calcium 8.5 mg/dL (7.8-10.44); Carbon Dioxide 25 mmol/L (22-29); Chloride 91 mmol/L (98-107); Estimated GFR-MDRD Greater than 90; Glucose 110 mg/dL (70-105); Phosphorus 4.4 mg/dL (2.3-4.7); Potassium 4.4 mmol/L (3.5-5.1); Sodium 123 mmol/L (136-145)
[2018-09-19] MEDS: Bacitracin Zinc Ointment 30 gm TUBE TOP PRN (05:10)
[2018-09-19 07:53] LABS: Anion Gap 13 mmol/L (10-20); BUN (Urea Nitrogen) 17 mg/dL (8.9-20.6); Calc. Creatinine Clearance 215 mL/min (70-130); Calcium 8.4 mg/dL (7.8-10.44); Carbon Dioxide 24 mmol/L (22-29); Chloride 90 mmol/L (98-107); Estimated GFR-MDRD Greater than 90; Glucose 117 mg/dL (70-105); Potassium 4.5 mmol/L (3.5-5.1); Sodium 122 mmol/L (136-145)
--- NOTE | 2018-09-19 08:14 | RAD ---
SINGLE VIEW CHEST: Date: 09/19/18 COMPARISON: 09/17/18. HISTORY: Constipation, pneumonia. FINDINGS: Single view of the chest shows normal sized cardiomediastinal silhouette. The tracheostomy and centra l venous catheter are unchanged in position. There is no evidence of consolidation, mass, or pleural effusion. IMPRESSION: No evidence of acute cardiopulmonary disease. POS: [facility]
[2018-09-19] MEDS: Senokot S 8.6-50 MG TAB PO SCH ×2 (08:55→20:23)
[2018-09-19] MEDS: Polyethylene Glycol 3350 17 GM Packet PO SCH (08:55)
[2018-09-19] MEDS: Metoclopramide 10 MG/10 ML UDCUP PO SCH ×3 (08:55→20:23)
[2018-09-19] MEDS: Famotidine/PF 20 mg/2ml Vial SLOW IVP SCH (08:56)
[2018-09-19] MEDS ORDERED: Sodium Chloride 3% 500 ML IVPB SCH ×2 (09:00)
[2018-09-19] MEDS: Chlorhexidine Gluconate 15 ML UDCUP SSP SCH ×2 (09:09→20:23)
[2018-09-19] MEDS: Silver Sulfadiazine 1% Cream 50 GM JAR TOP SCH ×2 (09:10→20:24)
[2018-09-19] MEDS: Bisacodyl 10 MG SUPP PR SCH (10:45)
[2018-09-19] MEDS: Sodium Chloride 0.9% 1,000 ML IV SCH ×2 (11:33→17:30)
[2018-09-19 14:07] LABS: Ref Lab Test Ordered AFB SMEAR + CULTURE; Reference Lab Name LABCORP
[2018-09-19 14:24] LABS: Anion Gap 10 mmol/L (10-20); BUN (Urea Nitrogen) 16 mg/dL (8.9-20.6); Calc. Creatinine Clearance 229 mL/min (70-130); Calcium 8.4 mg/dL (7.8-10.44); Carbon Dioxide 24 mmol/L (22-29); Chloride 94 mmol/L (98-107); Estimated GFR-MDRD Greater than 90; Glucose 99 mg/dL (70-105); Potassium 4.4 mmol/L (3.5-5.1); Sodium 124 mmol/L (136-145)
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
[2018-09-19 18:36] LABS: Anion Gap 11 mmol/L (10-20); BUN (Urea Nitrogen) 16 mg/dL (8.9-20.6); Calc. Creatinine Clearance 212 mL/min (70-130); Calcium 8.6 mg/dL (7.8-10.44); Carbon Dioxide 24 mmol/L (22-29); Chloride 96 mmol/L (98-107); Estimated GFR-MDRD Greater than 90; Glucose 106 mg/dL (70-105); Potassium 3.9 mmol/L (3.5-5.1); Sodium 127 mmol/L (136-145)
[2018-09-19] MEDS: Famotidine 20 MG TAB PO SCH (20:24)
[2018-09-19] MEDS: Morphine 2 MG/ML SYRINGE SLOW IVP PRN (22:34)
[2018-09-19 22:42] LABS: Anion Gap 12 mmol/L (10-20); BUN (Urea Nitrogen) 15 mg/dL (8.9-20.6); Calc. Creatinine Clearance 203 mL/min (70-130); Calcium 8.5 mg/dL (7.8-10.44); Carbon Dioxide 23 mmol/L (22-29); Chloride 96 mmol/L (98-107); Estimated GFR-MDRD Greater than 90; Glucose 101 mg/dL (70-105); Potassium 3.5 mmol/L (3.5-5.1); Sodium 127 mmol/L (136-145)
[2018-09-19] MEDS ORDERED: Nicotine 14 MG PATCH TD SCH (23:00)
[2018-09-20] MEDS: Acetaminophen 650 MG/20.3 ML UDCUP PO SCH ×7 (02:52→22:18)
[2018-09-20] MEDS: Sodium Chloride 0.9% 1,000 ML IV SCH (04:58)
[2018-09-20] MEDS: traMADol HCl 50 MG TAB PO SCH ×4 (05:29→23:46)
[2018-09-20] MEDS: CEFAZOLIN 2 GM in Premix Bag 1 BAG IVPB SCH (05:30)
[2018-09-20 05:49] LABS: Anion Gap 10 mmol/L (10-20); BUN (Urea Nitrogen) 15 mg/dL (8.9-20.6); Calc. Creatinine Clearance 204 mL/min (70-130); Calcium 8.1 mg/dL (7.8-10.44); Carbon Dioxide 24 mmol/L (22-29); Chloride 97 mmol/L (98-107); Estimated GFR-MDRD Greater than 90; Glucose 88 mg/dL (70-105); Magnesium 1.7 mg/dL (1.6-2.6); Phosphorus 3.3 mg/dL (2.3-4.7); Potassium 3.8 mmol/L (3.5-5.1); Sodium 127 mmol/L (136-145)
[2018-09-20 06:01] LABS: Band 5 % (5-11); Eosinophils 1 % (0-10); Hemoglobin 8.8 g/dL (14.0-18.0); Hypochromia SLIGHT = 6-15 cells (100X) (0-5/hpf); Lymphocytes 15 % (21-51); MDiff Complete? YES; Mean Corpuscular Hemoglobin 29.4 pg (27.0-31.0); Monocytes 2 % (0-10); Neutrophil 77 % (42-75); Platelet Count 211 thou/uL (130-400); Platelet Morphology Comment Appears Adequate; RBC Distribution Width 13.4 % (11.5-14.5); White Blood Cell (WBC) Count 13.5 thou/uL (4.8-10.8)
[2018-09-20] MEDS: Sodium Chloride 3% 500 ML IVPB SCH ×3 (07:39→23:38)
--- NOTE | 2018-09-20 07:51 | RAD ---
Portable frontal chest radiograph: 09/20/2018 COMPARISON: 09/19/2018 HISTORY: Aspiration pneumonia FINDINGS: Stable tracheostomy tube and left vascular catheter. No pneumothorax. Shallow inspiration l imits assessment of the lung bases. Mild increased density in the medial aspect of both lung bases may signify airspace disease or volume loss. No lobar consolidation or alveolar edema. No significant interval change. IMPRESSION: Stable appearance of the chest as above. No focal consolidation is seen.
[2018-09-20] MEDS ORDERED: Sodium Chloride 0.9% 1,000 ML IV SCH (09:00)
[2018-09-20] MEDS ORDERED: Magnesium 2 GM/50 ML 2 GM in Premix Bag 1 BAG IVPB SCH (09:00)
[2018-09-20] MEDS ORDERED: Potassium Phosphate 15 MMOL in Sodium Chloride 0.9% 250 ML 250 ML IVPB SCH (09:00)
[2018-09-20] MEDS: Senokot S 8.6-50 MG TAB PO SCH ×2 (09:20→20:43)
[2018-09-20] MEDS: Bisacodyl 10 MG SUPP PR SCH (09:20)
[2018-09-20] MEDS: Metoclopramide 10 MG/10 ML UDCUP PO SCH ×3 (09:20→20:42)
[2018-09-20] MEDS: Famotidine 20 MG TAB PO SCH ×2 (09:20→20:41)
[2018-09-20] MEDS: Polyethylene Glycol 3350 17 GM Packet PO SCH (09:21)
[2018-09-20] MEDS: Silver Sulfadiazine 1% Cream 50 GM JAR TOP SCH ×2 (09:21→20:43)
[2018-09-20] MEDS: Cefepime 2 GM in Sodium Chloride 0.9% 100 ML IVPB SCH ×2 (09:43→20:41)
[2018-09-20] MEDS: Chlorhexidine Gluconate 15 ML UDCUP SSP SCH ×2 (09:43→20:52)
[2018-09-20] MEDS ORDERED: Vancomycin HCl 1.5 GM in Sodium Chloride 0.9% 250 ML 300 ML IV SCH (10:00)
[2018-09-20] MEDS: Linezolid 600 MG TAB PER TUBE SCH ×2 (10:35→20:42)
[2018-09-20] MEDS: D5W-AA 4.25% with LYTES 1,000 ML IV SCH (11:20)
[2018-09-20] MEDS ORDERED: Piperacillin/Tazobactam 3.375 GM in Sodium Chloride 0.9% 100 ML IVPB SCH (12:00)
[2018-09-20 12:36] LABS: Anion Gap 10 mmol/L (10-20); BUN (Urea Nitrogen) 16 mg/dL (8.9-20.6); Calc. Creatinine Clearance 213 mL/min (70-130); Carbon Dioxide 25 mmol/L (22-29); Chloride 99 mmol/L (98-107); Estimated GFR-MDRD Greater than 90; Glucose 98 mg/dL (70-105); Potassium 3.9 mmol/L (3.5-5.1); Sodium 130 mmol/L (136-145)
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
[2018-09-20 16:20] LABS: Anion Gap 10 mmol/L (10-20); BUN (Urea Nitrogen) 15 mg/dL (8.9-20.6); Calc. Creatinine Clearance 220 mL/min (70-130); Calcium 8.2 mg/dL (7.8-10.44); Carbon Dioxide 25 mmol/L (22-29); Chloride 99 mmol/L (98-107); Estimated GFR-MDRD Greater than 90; Glucose 98 mg/dL (70-105); Potassium 4.1 mmol/L (3.5-5.1); Sodium 130 mmol/L (136-145)
[2018-09-20 20:31] LABS: Anion Gap 13 mmol/L (10-20); BUN (Urea Nitrogen) 14 mg/dL (8.9-20.6); Calc. Creatinine Clearance 223 mL/min (70-130); Calcium 8.1 mg/dL (7.8-10.44); Carbon Dioxide 21 mmol/L (22-29); Chloride 100 mmol/L (98-107); Estimated GFR-MDRD Greater than 90; Glucose 87 mg/dL (70-105); Potassium 4.2 mmol/L (3.5-5.1); Sodium 130 mmol/L (136-145)
[2018-09-20] MEDS: Nicotine 14 MG PATCH TD PRN (23:37)
[2018-09-21 01:04] LABS: Anion Gap 11 mmol/L (10-20); BUN (Urea Nitrogen) 13 mg/dL (8.9-20.6); Calc. Creatinine Clearance 220 mL/min (70-130); Calcium 8.4 mg/dL (7.8-10.44); Carbon Dioxide 24 mmol/L (22-29); Chloride 101 mmol/L (98-107); Estimated GFR-MDRD Greater than 90; Glucose 95 mg/dL (70-105); Potassium 3.8 mmol/L (3.5-5.1); Sodium 132 mmol/L (136-145)
[2018-09-21] MEDS: Morphine 2 MG/ML SYRINGE SLOW IVP PRN (01:54)
[2018-09-21] MEDS: Acetaminophen 650 MG/20.3 ML UDCUP PO SCH ×6 (02:00→21:09)
[2018-09-21] MEDS ORDERED: Lorazepam 2 MG/ML VIAL SLOW IVP SCH (03:00)
[2018-09-21 05:07] LABS: #Eosinphils 0.2 thou/uL (0.0-0.7); #Lymphocytes 1.5 thou/uL (1.20-3.40); #Monocytes 1.3 thou/uL (0.11-0.59); #Neutrophils 8.6 thou/uL (1.40-6.50); %Basophils 0.2 % (0.0-1.0); %Eosinophils 1.4 % (0.0-10.0); %Lymphocytes 12.7 % (21.0-51.0); %Monocytes 11.3 % (0.0-10.0); %Neutrophils 74.3 % (42.0-75.0); Hemoglobin 9.4 g/dL (14.0-18.0); Mean Corpuscular HGB CONC 32.6 g/dL (32.0-36.0); Mean Corpuscular Hemoglobin 29.5 pg (27.0-31.0); Mean Corpuscular Volume 90.6 fL (78.0-98.0); Mean Platelet Volume 7.6 fL (7.4-10.4); Platelet Count 252 thou/uL (130-400); RBC Distribution Width 13.1 % (11.5-14.5); Red Blood Cell (RBC) Count 3.18 mill/uL (4.70-6.10); White Blood Cell (WBC) Count 11.6 thou/uL (4.8-10.8)
[2018-09-21 05:29] LABS: Anion Gap 11 mmol/L (10-20); BUN (Urea Nitrogen) 13 mg/dL (8.9-20.6); Calc. Creatinine Clearance 213 mL/min (70-130); Calcium 8.5 mg/dL (7.8-10.44); Carbon Dioxide 24 mmol/L (22-29); Chloride 102 mmol/L (98-107); Estimated GFR-MDRD Greater than 90; Glucose 95 mg/dL (70-105); Magnesium 1.9 mg/dL (1.6-2.6); Phosphorus 3.1 mg/dL (2.3-4.7); Potassium 3.7 mmol/L (3.5-5.1); Sodium 133 mmol/L (136-145)
[2018-09-21] MEDS: D5W-AA 4.25% with LYTES 1,000 ML IV SCH (06:00)
[2018-09-21] MEDS: traMADol HCl 50 MG TAB PO SCH ×3 (06:00→18:14)
[2018-09-21] MEDS: Sodium Chloride 3% 500 ML IVPB SCH (07:20)
[2018-09-21] MEDS ORDERED: Potassium Chloride 20 MEQ TAB PO SCH (08:00)
[2018-09-21] MEDS ORDERED: PHOS-NAK 1 PKT PACK PO SCH (08:00)
[2018-09-21] MEDS: Cefepime 2 GM in Sodium Chloride 0.9% 100 ML IVPB SCH ×2 (09:08→21:09)
[2018-09-21] MEDS: Linezolid 600 MG TAB PER TUBE SCH ×2 (09:09→21:09)
[2018-09-21] MEDS: Famotidine 20 MG TAB PO SCH ×2 (09:10→21:09)
[2018-09-21] MEDS: Bisacodyl 10 MG SUPP PR SCH (09:10)
[2018-09-21] MEDS: Chlorhexidine Gluconate 15 ML UDCUP SSP SCH ×2 (09:10→21:08)
[2018-09-21] MEDS: Silver Sulfadiazine 1% Cream 50 GM JAR TOP SCH ×2 (09:11→21:11)
[2018-09-21] MEDS: Senokot S 8.6-50 MG TAB PO SCH ×2 (09:11→20:31)
[2018-09-21] MEDS: Polyethylene Glycol 3350 17 GM Packet PO SCH (09:11)
[2018-09-21] MEDS: Metoclopramide 10 MG/10 ML UDCUP PO SCH (09:11)
[2018-09-21] MEDS: Bacitracin Zinc Ointment 30 gm TUBE TOP PRN (09:12)
[2018-09-21 10:25] LABS: Actual Bicarbonate (HCO3a) 22.7 mEq/L (22-28); Base Excess (BEa) -0.8 mEq/L (-2.0 to +3.0); Calcium, Ionized 1.18 mmol/L (1.12-1.30); Carboxyhemoglobin (COHb) 0.4 gm% (0.0-3.0); Hemoglobin (Hb) 10.1 g/dL (14.0-18.0); O2 Tension (PaO2) 133.9 mmHg (80.0-100.0); pH, Arterial 7.46 (7.35-7.45)
[2018-09-21 10:27] LABS: Puncture Site LRA
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
[2018-09-21] MEDS: Scopolamine 1.5 mg/72 hour Patch TD SCH (10:35)
[2018-09-21 10:48] LABS: Anion Gap 9 mmol/L (10-20); BUN (Urea Nitrogen) 13 mg/dL (8.9-20.6); Calc. Creatinine Clearance 212 mL/min (70-130); Calcium 8.5 mg/dL (7.8-10.44); Carbon Dioxide 26 mmol/L (22-29); Chloride 105 mmol/L (98-107); Estimated GFR-MDRD Greater than 90; Glucose 105 mg/dL (70-105); Potassium 3.9 mmol/L (3.5-5.1); Sodium 136 mmol/L (136-145)
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
[2018-09-22] MEDS: Acetaminophen 650 MG/20.3 ML UDCUP PO SCH ×6 (02:42→21:09)
[2018-09-22] MEDS: D5W-AA 4.25% with LYTES 1,000 ML IV SCH (02:42)
[2018-09-22 05:03] LABS: Anion Gap 12 mmol/L (10-20); BUN (Urea Nitrogen) 16 mg/dL (8.9-20.6); Calc. Creatinine Clearance 202 mL/min (70-130); Calcium 8.9 mg/dL (7.8-10.44); Carbon Dioxide 27 mmol/L (22-29); Chloride 103 mmol/L (98-107); Estimated GFR-MDRD Greater than 90; Glucose 114 mg/dL (70-105); Magnesium 2.3 mg/dL (1.6-2.6); Phosphorus 4.4 mg/dL (2.3-4.7); Potassium 3.8 mmol/L (3.5-5.1); Sodium 138 mmol/L (136-145)
[2018-09-22 05:32] LABS: Band 6 % (5-11); Eosinophils 1 % (0-10); Hemoglobin 9.9 g/dL (14.0-18.0); Lymphocytes 17 % (21-51); MDiff Complete? YES; Mean Corpuscular HGB CONC 31.8 g/dL (32.0-36.0); Mean Corpuscular Hemoglobin 29.4 pg (27.0-31.0); Mean Corpuscular Volume 92.3 fL (78.0-98.0); Mean Platelet Volume 7.5 fL (7.4-10.4); Monocytes 11 % (0-10); Neutrophil 65 % (42-75); Platelet Count 313 thou/uL (130-400); Platelet Morphology Comment Appears Adequate; RBC Distribution Width 13.4 % (11.5-14.5); Red Blood Cell (RBC) Count 3.38 mill/uL (4.70-6.10); White Blood Cell (WBC) Count 10.9 thou/uL (4.8-10.8)
[2018-09-22] MEDS: traMADol HCl 50 MG TAB PO SCH ×5 (06:00→23:59)
[2018-09-22] MEDS: Cefepime 2 GM in Sodium Chloride 0.9% 100 ML IVPB SCH (08:57)
[2018-09-22] MEDS: Famotidine 20 MG TAB PO SCH ×2 (08:57→21:09)
[2018-09-22] MEDS: Chlorhexidine Gluconate 15 ML UDCUP SSP SCH ×2 (08:57→20:51)
[2018-09-22] MEDS: traMADol HCl 50 MG TAB PO PRN (08:58)
[2018-09-22] MEDS: Senokot S 8.6-50 MG TAB PO SCH ×2 (08:59→21:09)
[2018-09-22] MEDS: Silver Sulfadiazine 1% Cream 50 GM JAR TOP SCH ×2 (08:59→23:07)
[2018-09-22] MEDS: Polyethylene Glycol 3350 17 GM Packet PO SCH (08:59)
[2018-09-22] MEDS: Linezolid 600 MG TAB PER TUBE SCH (09:01)
[2018-09-22] MEDS ORDERED: Sulfameth/Trimethoprim DS 800-160mg TAB PO SCH (10:45)
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
--- NOTE | 2018-09-22 16:48 | CT ---
CT FACIAL BONES 09/22/18 COMPARISON: 09/17/18 HISTORY: Facial fracture status post surgery. TECHNIQUE: Axial CT imaging at 2.5 mm intervals through the facial bones with coronal and sagittal reformatted i maging. FINDINGS: There is a fracture involving the frontal bone anteriorly just to the right of midline superior to th e frontal sinus with mild stable posterior depression. Stable comminuted fractures are seen involving the anterior and posterior wall of bilateral frontal sinuses with associated intracranial extension. Stable comminuted bilateral nasal bone fractures are noted. The zygomatic arches appear intact. Stable bilateral pterygoid fractures are seen. There is an obliquely oriented fracture involving the inferior lateral aspect of the temporal bone on the right. Stable bilateral medial orbital wall fractures are noted, left more prominent than right. Stable comminuted impacted fracture of the osseous nasal septum noted. Neither temporomandibular joint is dislocated. There is no displaced mandibular fracture. There are fracture deformities seen involving the anterior and posterior wall of bilateral maxillary sinuses, with postoperative hardware associated with the anterior wall of bilateral maxillary sinuses , similar when compared to 09/17/18. Stable bilateral orbital floor fractures are seen. The maxillary sinuses are opacified as are the frontal sinuses. There is partial opacification of the ethmoid air cells and sphenoid sinuses bilaterally. Fat density again seen in right maxillary sinus. No significa nt interval change. Intracranial contents are not fully assessed on this exam. IMPRESSION: Extensive maxillofacial fractures and postoperative change as described above. POS: [facility]
[2018-09-22] MEDS: Ondansetron PF 4 MG/2 ML Vial IVP PRN (21:03)
[2018-09-22] MEDS: Sulfameth/Trimethoprim DS 800-160mg TAB PO SCH (21:09)
[2018-09-22] MEDS: Gabapentin 300 MG CAP PO SCH (21:09)
[2018-09-23] MEDS: Acetaminophen 650 MG/20.3 ML UDCUP PO SCH ×6 (02:01→21:35)
[2018-09-23 04:40] LABS: #Eosinphils 0.3 thou/uL (0.0-0.7); #Lymphocytes 2.3 thou/uL (1.20-3.40); #Neutrophils 4.9 thou/uL (1.40-6.50); %Basophils 0.4 % (0.0-1.0); %Monocytes 11.2 % (0.0-10.0); %Neutrophils 57.4 % (42.0-75.0); Hemoglobin 9.9 g/dL (14.0-18.0); Mean Corpuscular HGB CONC 31.7 g/dL (32.0-36.0); Mean Corpuscular Hemoglobin 29.7 pg (27.0-31.0); Mean Corpuscular Volume 93.7 fL (78.0-98.0); Mean Platelet Volume 7.2 fL (7.4-10.4); Platelet Count 361 thou/uL (130-400); RBC Distribution Width 13.6 % (11.5-14.5); Red Blood Cell (RBC) Count 3.32 mill/uL (4.70-6.10); White Blood Cell (WBC) Count 8.6 thou/uL (4.8-10.8)
[2018-09-23 05:10] LABS: Anion Gap 12 mmol/L (10-20); BUN (Urea Nitrogen) 22 mg/dL (8.9-20.6); Calc. Creatinine Clearance 177 mL/min (70-130); Calcium 8.8 mg/dL (7.8-10.44); Carbon Dioxide 27 mmol/L (22-29); Chloride 102 mmol/L (98-107); Estimated GFR-MDRD Greater than 90; Glucose 131 mg/dL (70-105); Magnesium 2.3 mg/dL (1.6-2.6); Phosphorus 4.9 mg/dL (2.3-4.7); Sodium 137 mmol/L (136-145)
[2018-09-23] MEDS: traMADol HCl 50 MG TAB PO SCH ×3 (06:10→17:32)
[2018-09-23] MEDS: Famotidine 20 MG TAB PO SCH ×2 (09:36→21:35)
[2018-09-23] MEDS: Polyethylene Glycol 3350 17 GM Packet PO SCH (09:36)
[2018-09-23] MEDS: Sulfameth/Trimethoprim DS 800-160mg TAB PO SCH ×2 (09:36→21:35)
[2018-09-23] MEDS: Chlorhexidine Gluconate 15 ML UDCUP SSP SCH ×2 (09:36→21:35)
[2018-09-23] MEDS: Gabapentin 300 MG CAP PO SCH ×2 (09:36→21:35)
[2018-09-23] MEDS: Senokot S 8.6-50 MG TAB PO SCH ×2 (09:36→21:35)
[2018-09-23] MEDS: Silver Sulfadiazine 1% Cream 50 GM JAR TOP SCH ×2 (09:37→21:43)
[2018-09-23] MEDS: Ondansetron PF 4 MG/2 ML Vial IVP PRN (13:27)
[2018-09-23] MEDS: traMADol HCl 50 MG TAB PO PRN (13:27)
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
[2018-09-23] MEDS ORDERED: Mag-Al 1200 mg/1200 mg/30 ML UDCUP PO PRN (21:25)
[2018-09-24] MEDS: traMADol HCl 50 MG TAB PO SCH ×4 (00:19→18:05)
[2018-09-24] MEDS: Acetaminophen 650 MG/20.3 ML UDCUP PO SCH ×6 (01:38→21:04)
[2018-09-24] MEDS: Polyethylene Glycol 3350 17 GM Packet PO SCH (09:47)
[2018-09-24] MEDS: Sulfameth/Trimethoprim DS 800-160mg TAB PO SCH ×2 (09:47→20:54)
[2018-09-24] MEDS: Chlorhexidine Gluconate 15 ML UDCUP SSP SCH ×2 (09:47→20:54)
[2018-09-24] MEDS: Famotidine 20 MG TAB PO SCH ×2 (09:47→20:54)
[2018-09-24] MEDS: Senokot S 8.6-50 MG TAB PO SCH ×2 (09:47→20:54)
[2018-09-24] MEDS: Gabapentin 300 MG CAP PO SCH ×2 (09:47→20:54)
[2018-09-24] MEDS: Silver Sulfadiazine 1% Cream 50 GM JAR TOP SCH ×2 (09:48→20:58)
[2018-09-24] MEDS: Scopolamine 1.5 mg/72 hour Patch TD SCH (11:30)
[2018-09-24] MEDS ORDERED: Melatonin 3 MG TAB PO PRN (11:32)
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
[2018-09-25] MEDS: traMADol HCl 50 MG TAB PO SCH ×4 (00:17→17:57)
[2018-09-25] MEDS: Acetaminophen 650 MG/20.3 ML UDCUP PO SCH ×6 (01:37→21:01)
[2018-09-25 05:08] LABS: Anion Gap 14 mmol/L (10-20); BUN (Urea Nitrogen) 24 mg/dL (8.9-20.6); Calc. Creatinine Clearance 151 mL/min (70-130); Calcium 8.8 mg/dL (7.8-10.44); Carbon Dioxide 25 mmol/L (22-29); Chloride 101 mmol/L (98-107); Estimated GFR-MDRD Greater than 90; Glucose 116 mg/dL (70-105); Magnesium 2.2 mg/dL (1.6-2.6); Phosphorus 4.8 mg/dL (2.3-4.7); Sodium 136 mmol/L (136-145)
[2018-09-25] MEDS: Senokot S 8.6-50 MG TAB PO SCH ×2 (09:03→21:01)
[2018-09-25] MEDS: Sulfameth/Trimethoprim DS 800-160mg TAB PO SCH ×2 (09:03→21:01)
[2018-09-25] MEDS: Famotidine 20 MG TAB PO SCH ×2 (09:03→21:01)
[2018-09-25] MEDS: Gabapentin 300 MG CAP PO SCH ×2 (09:03→21:01)
[2018-09-25] MEDS: Polyethylene Glycol 3350 17 GM Packet PO SCH (09:03)
[2018-09-25] MEDS: Silver Sulfadiazine 1% Cream 50 GM JAR TOP SCH ×2 (09:04→21:01)
[2018-09-25] MEDS: Chlorhexidine Gluconate 15 ML UDCUP SSP SCH ×2 (09:04→21:01)
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
[2018-09-26] MEDS: traMADol HCl 50 MG TAB PO SCH ×5 (00:03→23:05)
[2018-09-26] MEDS: Sodium Chloride 0.9% 1,000 ML IV SCH ×4 (00:04→21:56)
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
[2018-09-26] MEDS: Acetaminophen 650 MG/20.3 ML UDCUP PO SCH ×6 (02:07→21:57)
[2018-09-26] MEDS: Chlorhexidine Gluconate 15 ML UDCUP SSP SCH ×2 (09:21→21:55)
[2018-09-26] MEDS: Sulfameth/Trimethoprim DS 800-160mg TAB PO SCH ×2 (09:21→21:56)
[2018-09-26] MEDS: Gabapentin 300 MG CAP PO SCH ×2 (09:21→21:56)
[2018-09-26] MEDS: Famotidine 20 MG TAB PO SCH ×2 (09:21→21:56)
[2018-09-26] MEDS: Senokot S 8.6-50 MG TAB PO SCH ×2 (09:21→21:56)
[2018-09-26] MEDS: Polyethylene Glycol 3350 17 GM Packet PO SCH (09:21)
[2018-09-26] MEDS: Silver Sulfadiazine 1% Cream 50 GM JAR TOP SCH ×2 (09:22→21:56)
[2018-09-26] MEDS ORDERED: Glycopyrrolate 0.2 MG/ML 5 ML SYRINGE ONE (10:41)
[2018-09-26] MEDS ORDERED: Ketorolac Tromethamine 30 MG/ML VIAL ONE (10:41)
[2018-09-26] MEDS ORDERED: Ondansetron PF 4 MG/2 ML Vial ONE (10:41)
[2018-09-26] MEDS ORDERED: Rocuronium Bromide 10 MG/ML (10ML VIAL) ONE (10:41)
[2018-09-26] MEDS ORDERED: PROPOFOL 200 MG/20 ML VIAL ONE (10:41)
[2018-09-26] MEDS ORDERED: Metoclopramide HCl 10 MG/2 ML VIAL ONE (10:41)
[2018-09-26] MEDS ORDERED: Dexamethasone 20 MG/5 ML VIAL ONE (10:41)
[2018-09-26] MEDS ORDERED: PHENYLEPHRINE-NS 100 MCG/ML 10 ML SYRINGE ONE (10:41)
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
[2018-09-26] MEDS ORDERED: Chlorhexidine Gluconate 15 ML UDCUP SSP ONE (16:28)
[2018-09-26] MEDS ORDERED: Hydrocortisone 1% Cream 30 GM TUBE ONE (16:28)
[2018-09-26] MEDS ORDERED: Lidocaine 1% w/Epinephrine 1:100K 20 ML VIAL ONE (16:28)
[2018-09-26] MEDS ORDERED: Lidocaine 2% Jelly 5 ML TUBE ONE (16:28)
[2018-09-26] MEDS ORDERED: Sodium Chloride 0.9% 0 ML ONE (17:13)
[2018-09-26] MEDS ORDERED: Fentanyl 250 MCG/5 ML VIAL ONE (17:20)
[2018-09-26] MEDS ORDERED: Famotidine/PF 20 mg/2ml Vial ONE (17:20)
[2018-09-26] MEDS ORDERED: Meperidine HCl/PF 25 MG/ML VIAL ONE (17:20)
[2018-09-26] MEDS ORDERED: Fentanyl 100 MCG/2 ML VIAL ONE (17:20)
[2018-09-26] MEDS ORDERED: ceFAZolin Sodium (SDC) 2 GM/100 ML BAG ONE (17:41)
[2018-09-26] MEDS ORDERED: Promethazine HCl 25 MG/ML VIAL SLOW IVP PRN (19:04)
[2018-09-26] MEDS ORDERED: Promethazine HCl 25 MG/ML VIAL IM PRN (19:04)
[2018-09-26] MEDS ORDERED: Ondansetron HCl/PF 4 MG/2 ML Vial IVP PRN (19:04)
[2018-09-26] MEDS ORDERED: Meperidine HCl/PF 25 MG/ML VIAL SLOW IVP PRN (19:04)
[2018-09-26] MEDS ORDERED: Bacitracin Zinc Ointment 30 gm TUBE ONE (19:38)
[2018-09-26] MEDS: Bacitracin 1 PK TOP SCH (21:56)
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
[2018-09-27] MEDS: Acetaminophen 650 MG/20.3 ML UDCUP PO SCH ×6 (01:51→22:06)
[2018-09-27] MEDS: traMADol HCl 50 MG TAB PO SCH ×4 (05:40→23:33)
[2018-09-27] MEDS ORDERED: Milk Of Magnesia 30 ML UDCUP PO SCH (09:00)
[2018-09-27] MEDS: Famotidine 20 MG TAB PO SCH ×2 (09:46→20:58)
[2018-09-27] MEDS: Bacitracin 1 PK TOP SCH ×2 (09:46→20:58)
[2018-09-27] MEDS: Sulfameth/Trimethoprim DS 800-160mg TAB PO SCH ×2 (09:46→20:58)
[2018-09-27] MEDS: Senokot S 8.6-50 MG TAB PO SCH ×2 (09:47→20:58)
[2018-09-27] MEDS: Gabapentin 300 MG CAP PO SCH ×2 (09:47→20:58)
[2018-09-27] MEDS: Chlorhexidine Gluconate 15 ML UDCUP SSP SCH ×2 (09:48→20:57)
[2018-09-27] MEDS: Polyethylene Glycol 3350 17 GM Packet PO SCH (09:49)
[2018-09-27] MEDS: Silver Sulfadiazine 1% Cream 50 GM JAR TOP SCH ×2 (09:52→20:59)
[2018-09-27] MEDS: Scopolamine 1.5 mg/72 hour Patch TD SCH (11:56)
[2018-09-27] MEDS: Sodium Chloride 0.9% 1,000 ML IV SCH ×2 (12:09→18:47)
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
[2018-09-27] MEDS: Nicotine 14 MG PATCH TD PRN (21:40)
--- NOTE | 2018-09-28 00:18 | PRG ---
DATE OF SERVICE: 09/27/2018 SUBJECTIVE: The patient is currently on the surgical floor. He underwent procedures by Dr. An of oromaxillofacial surgery yesterday, had multiple teeth extracted. He tolerated this well. He was on clears for the night and today he was transitioned to a blenderized diet. He is tolerating this well. His pain is controlled and he has been working with physical and occupational therapy. He is currently awaiting [facility] bed placement. PHYSICAL EXAMINATION: VITAL SIGNS: Stable. The patient is afebrile. He is currently resting comfortably in bed. He is not having any complaints. PLAN: Plan will be to continue his supportive care. Advance his diet as tolerate and permitted by [facility] [place] [place]. Continue physical and occupational therapy and await placement. Job ID: [id number]
[2018-09-28] MEDS: Acetaminophen 650 MG/20.3 ML UDCUP PO SCH ×6 (02:30→22:43)
[2018-09-28] MEDS: Sodium Chloride 0.9% 1,000 ML IV SCH ×3 (02:30→22:39)
[2018-09-28 06:04] LABS: #Basophils 0.1 thou/uL (0.0-0.2); #Eosinphils 0.3 thou/uL (0.0-0.7); #Lymphocytes 2.1 thou/uL (1.20-3.40); #Monocytes 0.5 thou/uL (0.11-0.59); #Neutrophils 2.1 thou/uL (1.40-6.50); %Basophils 1.1 % (0.0-1.0); %Eosinophils 6.2 % (0.0-10.0); %Lymphocytes 40.9 % (21.0-51.0); %Neutrophils 41.8 % (42.0-75.0); Hemoglobin 9.5 g/dL (14.0-18.0); Mean Corpuscular HGB CONC 32.3 g/dL (32.0-36.0); Mean Corpuscular Hemoglobin 29.4 pg (27.0-31.0); Mean Platelet Volume 7.1 fL (7.4-10.4); Platelet Count 363 thou/uL (130-400); RBC Distribution Width 13.4 % (11.5-14.5); Red Blood Cell (RBC) Count 3.23 mill/uL (4.70-6.10); White Blood Cell (WBC) Count 5.1 thou/uL (4.8-10.8)
[2018-09-28] MEDS: traMADol HCl 50 MG TAB PO SCH ×4 (06:05→23:10)
[2018-09-28 06:44] LABS: Anion Gap 12 mmol/L (10-20); BUN (Urea Nitrogen) 13 mg/dL (8.9-20.6); Calc. Creatinine Clearance 155 mL/min (70-130); Carbon Dioxide 25 mmol/L (22-29); Chloride 109 mmol/L (98-107); Estimated GFR-MDRD Greater than 90; Glucose 98 mg/dL (70-105); Sodium 142 mmol/L (136-145)
[2018-09-28] MEDS: Bacitracin 1 PK TOP SCH ×2 (09:56→19:47)
[2018-09-28] MEDS: Chlorhexidine Gluconate 15 ML UDCUP SSP SCH ×2 (09:56→19:47)
[2018-09-28] MEDS: Famotidine 20 MG TAB PO SCH ×2 (09:57→19:47)
[2018-09-28] MEDS: Polyethylene Glycol 3350 17 GM Packet PO SCH (09:57)
[2018-09-28] MEDS: Gabapentin 300 MG CAP PO SCH ×2 (09:57→19:47)
[2018-09-28] MEDS: Senokot S 8.6-50 MG TAB PO SCH ×2 (09:57→19:47)
[2018-09-28 15:46] VITALS: BMI 27.6
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
[2018-09-28] MEDS: Silver Sulfadiazine 1% Cream 50 GM JAR TOP SCH ×2 (17:55→19:48)
[2018-09-29] MEDS: Acetaminophen 650 MG/20.3 ML UDCUP PO SCH ×4 (01:21→15:23)
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
[2018-09-29] MEDS: Sodium Chloride 0.9% 1,000 ML IV SCH ×2 (04:22→12:31)
[2018-09-29] MEDS: traMADol HCl 50 MG TAB PO SCH ×2 (05:28→13:13)
[2018-09-29] MEDS: Gabapentin 300 MG CAP PO SCH (10:16)
[2018-09-29] MEDS: Chlorhexidine Gluconate 15 ML UDCUP SSP SCH (10:16)
[2018-09-29] MEDS: Senokot S 8.6-50 MG TAB PO SCH (10:16)
[2018-09-29] MEDS: Famotidine 20 MG TAB PO SCH (10:16)
[2018-09-29] MEDS: Polyethylene Glycol 3350 17 GM Packet PO SCH (10:16)
[2018-09-29] MEDS: Bacitracin 1 PK TOP SCH (10:16)
[2018-09-29] MEDS: Silver Sulfadiazine 1% Cream 50 GM JAR TOP SCH (10:17)
[2018-09-29 15:40] VITALS: BP 127/85; TEMP 98.6
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
--- NOTE | 2018-10-01 12:14 | OP ---
DATE OF PROCEDURE: 09/14/2018 PREOPERATIVE DIAGNOSIS: Right hand open wound, total length approximately 6 cm, involving the palmar hand in line with the ring finger, long finger, index finger, and thumb. PROCEDURE PERFORMED: 1. Debridement of wounds, intermediate depth [id number]. 2. Digital nerve neuroplasty, x2 at the index finger and long finger. 3. Closure of wound, total of 6 cm, palmar hand in line with 3 different fingers. INDICATIONS: The patient involved with a traumatic brain injury who had obvious hand multiple subcutaneous wounds , but definitely had a deep wound x2 3 cm of palm. We could not perform neurovascular exam as the patient was in a coma, recovering for traumatic brain damage. DESCRIPTION OF PROCEDURE: After successful general endotracheal anesthesia, the limb was prepped and draped. Each of the 2 cm wounds were opened another 1 cm, and we dissected out. We could visualize all the digital nerves. They were all intact in radial and ulnar aspect of three. We then irrigated the wound with Pulsavac, saw the flexor tendons were intact to include the sheath and then prepared the wound for closure. We then closed the wound with interrupted 3-0 nylon in a simple pattern without evidence of anesthetic operative complication. Job ID: [id number]
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
== END 2018-09-29 17:42 | disposition home or self-care (01) | DRG 3 ==
LOC: EDBD 18:32 → ERS 18:32 → CCU 20:10 → SJJU 09-22 12:33
PROVIDERS: ADMIT Surgery; ATTEND Surgery
PROC: 0BH17EZ Insertion of Endotracheal Airway into Trachea, Via Natural or Artificial Opening (ICD-10-PCS; principal; 2018-09-10)
PROC: 5A1945Z Respiratory Ventilation, 24-96 Consecutive Hours (ICD-10-PCS; 2018-09-10)
PROC: 0B110F4 Bypass Trachea to Cutaneous with Tracheostomy Device, Open Approach (ICD-10-PCS; 2018-09-12)
PROC: 06H03DZ Insertion of Intraluminal Device into Inferior Vena Cava, Percutaneous Approach (ICD-10-PCS; 2018-09-12)
PROC: 0B9B8ZZ Drainage of Left Lower Lobe Bronchus, Via Natural or Artificial Opening Endoscopic (ICD-10-PCS; 2018-09-12)
PROC: 0B948ZZ Drainage of Right Upper Lobe Bronchus, Via Natural or Artificial Opening Endoscopic (ICD-10-PCS; 2018-09-12)
PROC: 0B988ZZ Drainage of Left Upper Lobe Bronchus, Via Natural or Artificial Opening Endoscopic (ICD-10-PCS; 2018-09-12)
PROC: 0B938ZZ Drainage of Right Main Bronchus, Via Natural or Artificial Opening Endoscopic (ICD-10-PCS; 2018-09-12)
PROC: 0BC68ZZ Extirpation of Matter from Right Lower Lobe Bronchus, Via Natural or Artificial Opening Endoscopic (ICD-10-PCS; 2018-09-12)
PROC: 0DH63UZ Insertion of Feeding Device into Stomach, Percutaneous Approach (ICD-10-PCS; 2018-09-12)
PROC: 3E0G76Z Introduction of Nutritional Substance into Upper GI, Via Natural or Artificial Opening (ICD-10-PCS; 2018-09-12)
PROC: 05H633Z Insertion of Infusion Device into Left Subclavian Vein, Percutaneous Approach (ICD-10-PCS; 2018-09-12)
PROC: 0JDJ0ZZ Extraction of Right Hand Subcutaneous Tissue and Fascia, Open Approach (ICD-10-PCS; 2018-09-14)
PROC: 0NBV0ZZ Excision of Left Mandible, Open Approach (ICD-10-PCS; 2018-09-17)
PROC: 0NSR04Z Reposition Maxilla with Internal Fixation Device, Open Approach (ICD-10-PCS; 2018-09-17)
PROC: 0CDXXZ1 Extraction of Lower Tooth, Multiple, External Approach (ICD-10-PCS; 2018-09-17)
PROC: 0CDWXZ1 Extraction of Upper Tooth, Multiple, External Approach (ICD-10-PCS; 2018-09-17)
PROC: 0WB30ZZ Excision of Oral Cavity and Throat, Open Approach (ICD-10-PCS; 2018-09-26)
DX: S06.5X9A Traumatic subdural hemorrhage with loss of consciousness of unspecified duration, initial encounter (principal); J96.00 Acute respiratory failure, unspecified whether with hypoxia or hypercapnia; J69.0 Pneumonitis due to inhalation of food and vomit; S27.322A Contusion of lung, bilateral, initial encounter; G96.0 Cerebrospinal fluid leak; E87.1 Hypo-osmolality and hyponatremia; S02.411A LeFort I fracture, initial encounter for closed fracture; S06.0X9A Concussion with loss of consciousness of unspecified duration, initial encounter; S01.81XA Laceration without foreign body of other part of head, initial encounter; V29.9XXA Motorcycle rider (driver) (passenger) injured in unspecified traffic accident, initial encounter; Y92.410 Unspecified street and highway as the place of occurrence of the external cause; R40.2430 Glasgow coma scale score 3-8, unspecified time; S02.5XXA Fracture of tooth (traumatic), initial encounter for closed fracture; S01.511A Laceration without foreign body of lip, initial encounter; S40.812A Abrasion of left upper arm, initial encounter; S40.811A Abrasion of right upper arm, initial encounter; S02.19XA Other fracture of base of skull, initial encounter for closed fracture; S02.2XXA Fracture of nasal bones, initial encounter for closed fracture; S41.122A Laceration with foreign body of left upper arm, initial encounter; E83.42 Hypomagnesemia; E83.39 Other disorders of phosphorus metabolism; E87.6 Hypokalemia
CPT/HCPCS: 31500; 36415; 36416; 37191; 51702; 70450; 70486; 71045; 71260; 72125; 74177; 76942; 80048; 80053; 80306; 80307; 81001; 81003; 82805; 83605; 83735; 83930; 83935; 84100; 84300; 84443; 85007; 85025; 85027; 85610; 85730; 86850; 86900; 86901; 87070; 87086; 87116; 87205; 87206; 90471; 90715; 94002; 94003; 94640; 96360; 96365; 99152; B4083; C1713; C1769; G0390; J0131; J0690; J0692; J1100; J1644; J1885; J2001; J2060; J2175; J2250; J2270; J2405; J2704; J2765; J3010; J3370; J3475; J3490; J7050; J7131; J7620; P9045; Q9966; Q9967; S0020; S0028

== ENCOUNTER 2018-10-18 12:46 | Outpatient (CLI) | payer OTHER ==
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
== END 2018-10-18 12:47 | disposition home or self-care (01) ==
LOC: TBSIIMAG 12:46
PROVIDERS: ATTEND Neurological Surgery
DX: S06.309D Unspecified focal traumatic brain injury with loss of consciousness of unspecified duration, subsequent encounter (principal); S02.92XD Unspecified fracture of facial bones, subsequent encounter for fracture with routine healing
CPT/HCPCS: 70450